=== PATIENT | female | born 1985 | race Caucasian/White ===

== ENCOUNTER → 2019-07-19 | Outpatient (CLI) | payer MEDICAID ==
[~2019-07-19] MED LIST: ACHD5005 PO; ASPI1POW PO; BIRTHCONTROL; CLIN300C3 PO; CPR500T PO; CYCL10TA9 PO; DCS100C PO; HYDR-2858 PO; HYDR-3454 PO; IBP600T1 PO; NAPR-243 PO; NITR-65 PO; ONDA8TAB13 PO; OXYC-12 PO; PHEN200T27 PO; PRD20T PO; PREN1TAB39 PO; TRAM50TA2 PO
== END ==
LOC: LAB 08:20
PROVIDERS: ATTEND Family Medicine
DX: O99.810 Abnormal glucose complicating pregnancy (principal)
CPT/HCPCS: 36415; 82951; 82952; 82962

== ENCOUNTER 2019-08-31 17:19 | Outpatient (CLI) | payer MEDICAID ==
[~2019-08-31] VITALS: Ht 162.5 cm; Wt 72.9 kg
--- NOTE | 2019-08-31 17:25 | NUR ---
KAIT NULL presented to unit via ambulatory from ED/home, with c/o vaginal spotting. KAIT NULL weighed, gowned, voided, and to bed. EFHM and TOCO applied, VS taken. KAIT NULL oriented to bed controls, call light, TV, heat, and A/C controls.
[2019-08-31 17:35] VITALS: BP 114/72
[2019-08-31 17:40] VITALS: BP 114/72
--- NOTE | 2019-08-31 18:25 | NUR ---
Dr Ludwig called by this RN with pt report. Pt of Dr Cook in [place], pt lives here in [place] however. Pt is , states she had a 13wk loss with her last . EDC 11/05, making her 30.1 wks. Pt CO light pink spotting when she wiped. No bleeding noted by this RN. Pt states she is feeling movement, poor water intake, no intercourse recently, no UC- TOCO shows slight uterine irritability, FHT reactive, pt denies complications, VSS. Urine dip results read to Dr Ludwig. Dr Ludwig states pt may DC to home, needs to hydrate well and try to follow up her OB tomorrow if possible.
--- NOTE | 2019-09-01 10:55 | Physician Query-Final Dx ---
Clinic Account Progress/Dx Physician Query: Please give diagnosis Please include # weeks gestation Date of Service August 31, 2019 at 17:19 HAJA BECERRA September 01, 2019 10:55
== END 2019-08-31 18:55 | disposition home or self-care (01) ==
LOC: WSo 17:19 → LDRP 17:19 → WSo 18:55
PROVIDERS: ATTEND Family Medicine
DX: O26.853 Spotting complicating pregnancy, third trimester (principal); Z3A.30 30 weeks gestation of pregnancy
CPT/HCPCS: 99213

== ENCOUNTER 2019-10-13 09:32 | Outpatient (CLI) | payer MEDICAID ==
[~2019-10-13] VITALS: Ht 162.6 cm; Wt 161.9 kg
--- NOTE | 2019-10-13 09:40 | NUR ---
KAIT NULL presented to unit via ambulation from ED, accompanied by self, with c/o BACK/PELVIC PAIN. KAIT NULL weighed, gowned, voided, and to bed. EFHM and TOCO applied, VS taken. KAIT NULL oriented to bed controls, call light, TV, heat, and A/C controls.
--- NOTE | 2019-10-13 09:45 | NUR ---
Pt reports c/o's contractions and pelvic pressure since Friday. pain relieved with Tylenol, pain becoming worse prior to arrival. care received from dr.Jennifer Carranza in [place]. pt lives in [place] with family. states [facility] is closer . denies vaginal bleeding or leaking fluid. +FM. last intercourse with was last week. denies urinary sx's. reports no current hx.
[2019-10-13 09:50] VITALS: BP 125/73
[2019-10-13 09:59] VITALS: BP 125/73
[2019-10-13 10:03] LABS: BILIRUBIN,URINE NEGATIVE (NEGATIVE); CLARITY,URINE CLEAR; COLOR,URINE YELLOW; GLUCOSE, URINE (UA) NEGATIVE (NEGATIVE); KETONES,URINE NEGATIVE (NEGATIVE); LEUKOCYTE ESTERASE ,URINE 2+ (NEGATIVE); NITRITE,URINE NEGATIVE (NEGATIVE); PROTEIN,URINE NEGATIVE (NEGATIVE)
--- NOTE | 2019-10-13 10:05 | NUR ---
SVE 1cm, thick, posterior, high.
[2019-10-13 10:12] LABS: BACTERIA,URINE TRACE /HPF; TRICHOMONAS,URINE FEW /HPF
--- NOTE | 2019-10-13 10:33 | NUR ---
was notified of pt's admitting c/o's, SVE, UA and monitor tracing. Flagyl 2gm po now. monitor x1 hour, if no cervical change- may dismiss to home, follow up with PCP as scheduled.
[2019-10-13] MEDS ORDERED: metroNIDAZOLE 500 MG (FLAGYL) TAB ONE (10:42)
[2019-10-13] MEDS ORDERED: metroNIDAZOLE 500 MG (FLAGYL) TAB PO ONE (10:45)
--- NOTE | 2019-10-13 11:35 | NUR ---
dismissal instructions given, verbalizes understanding. reviewed sx's to RTC. information given r/t trichomonas, treatment, and instructing s/o and partners to seek treatment. pt tearful, crying.
--- NOTE | 2019-10-13 11:40 | NUR ---
SVE no change from admission SVE. instructed pt to follow up with PCP as scheduled or prn if sx's worsen.
--- NOTE | 2019-10-13 11:45 | NUR ---
pt ambulated to private vehicle with no sx's of distress noted.
--- NOTE | 2019-10-14 08:29 | Physician Query-Final Dx ---
HAJA BECERRA 10/14/19 0828: Clinic Account Progress/Dx Physician Query: Please give diagnosis Please include # weeks gestation Date of Service Oct 13, 2019 at 09:32 LESLY TURNER MD 10/14/19 1613: Clinic Account Progress/Dx DIAGNOSIS: Diagnosis 35 weeks with false labor HAJA BECERRA Oct 14, 2019 08:28 LESLY TURNER MD Oct 14, 2019 16:13
== END 2019-10-13 11:45 | disposition home or self-care (01) ==
LOC: WSo 09:32 → LDRP 09:37 → WSo 11:45
PROVIDERS: ATTEND Obstetrics & Gynecology
DX: O47.03 False labor before 37 completed weeks of gestation, third trimester (principal); Z3A.35 35 weeks gestation of pregnancy
CPT/HCPCS: 81000; 87088; 99213

== ENCOUNTER 2020-01-31 18:50 | Emergency (ER) | payer MEDICAID ==
[~2020-01-31] VITALS: Ht 162.5 cm; Wt 64.0 kg
--- NOTE | 2020-01-31 19:36 | ED Abdominal Pain ---
General Chief Complaint: Female Reproductive Stated Complaint: CRAMPING/LARGE CLOT PASSED/UNK IF Source of Information: Patient (LUISANA LOVING STUDENT) History of Present Illness Date Seen by Provider: Jan 31, 2020 Time Seen by Provider: 07:20 Initial Comments Geovanna Payan is an otherwise healthy A1 34 yo F who presents with complaint of clot passage with menses. She states she is 3 months after an uncomplicated vaginal delivery and had her first Depo-Provera shot last month. She states she has been sexually active with her and is not . She reports 1 week of menstrual bleeding of her typical volume with lower abdominal cramping throughout the day today. She took 1000mg Tylenol at 5 pm for this. Pain was 3/10 but currently absent. The patient states she passed a large clot the size of her palm 2.5 hours ago. The patient reports daytime fatigue as well. She denies fever, chills, SOB, chest pain, cough, lightheadedness. (LUISANA LOVING) Allergies and Home Medications Allergies Coded Allergies: No Known Drug Allergies (Unverified , 07/08/10) Home Medications No Active Prescriptions or Reported Meds Patient Home Medication List Home Medication List Reviewed: Yes (MARYLOU CAMPOS MD) Review of Systems Review of Systems Constitutional: No chills, No fever; other (daytime fatigue) Respiratory: Denies Cough, Denies Shortness of Air Gastrointestinal: Denies Abdomen Distended; Abdominal Pain; Denies Nausea, Denies Vomiting Genitourinary: Other (menstrual bleeding with passage of large clot) Musculoskeletal: No back pain (LUISANA LOVING) Past Whxiqak-Xmlalx-Fnkqih Hx Patient Social History 2nd Hand Smoke Exposure: No Recent Foreign Travel: No Contact w/Someone Who Travel: No (LUISANA LOVING) Immunizations Up To Date Date of Influenza Vaccine: Jan 13, 2012 (LUISANA LOVING) Past Medical History Reproductive Disorders: No (LUISANA LOVING) Physical Exam Vital Signs Vital Signs - First Documented 01/31/20 01/31/20 19:11 20:59 Temp 36.3 Pulse 102 Resp 16 B/P (MAP) 136/77 (96) Pulse Ox 100 O2 Delivery Room Air (MARYLOU CAMPOS MD) Vital Signs Capillary Refill : (LUISANA LOVING STUDENT) Height/Weight/BMI Height: 5'4.00" Weight: 139lbs. oz. 63.475676qn; 61.23 BMI Method: General Appearance: WD/WN, no apparent distress HEENT: PERRL/EOMI, normal ENT inspection Neck: non-tender, full range of motion Respiratory: chest non-tender, lungs clear, normal breath sounds, no respiratory distress, no accessory muscle use Cardiovascular: regular rate, rhythm, no edema, no gallop, no JVD, no murmur Gastrointestinal: normal bowel sounds, soft, no organomegaly; No distended, No guarding; tenderness (minimal epigastric tenderness, no suprapubic tenderness or other abdominal tenderness) Extremities: no pedal edema, no calf tenderness Neurologic/Psychiatric: alert, normal mood/affect, oriented x 3 Skin: normal color, warm/dry (LUISANA LOVING [employer] STUDENT) Progress/Results/Core Measures Results/Orders Lab Results Laboratory Tests Test 01/31/20 19:29 Range/Units White Blood Count 8.2 4.3-11.0 10^3/uL Red Blood Count 4.48 3.80-5.11 10^6/uL Hemoglobin 12.3 11.5-16.0 g/dL Hematocrit 38 35-52 % Mean Corpuscular Volume 85 80-99 fL Mean Corpuscular Hemoglobin 28 25-34 pg Mean Corpuscular Hemoglobin Concent 32 32-36 g/dL Red Cell Distribution Width 14.4 10.0-14.5 % Platelet Count 308 130-400 10^3/uL Mean Platelet Volume 8.7 L 9.0-12.2 fL Immature Granulocyte % (Auto) 0 % Neutrophils (%) (Auto) 65 42-75 % Lymphocytes (%) (Auto) 24 12-44 % Monocytes (%) (Auto) 10 0-12 % Eosinophils (%) (Auto) 1 0-10 % Basophils (%) (Auto) 1 0-10 % Neutrophils # (Auto) 5.3 1.8-7.8 10^3/uL Lymphocytes # (Auto) 2.0 1.0-4.0 10^3/uL Monocytes # (Auto) 0.8 0.0-1.0 10^3/uL Eosinophils # (Auto) 0.1 0.0-0.3 10^3/uL Basophils # (Auto) 0.1 0.0-0.1 10^3/uL Immature Granulocyte # (Auto) 0.0 0.0-0.1 10^3/uL Prothrombin Time 12.9 12.2-14.7 SEC INR Comment 0.9 0.8-1.4 Activated Partial Thromboplast Time 26 24-35 SEC Serum Test, Qualitative NEGATIVE NEGATIVE (MARYLOU CAMPOS MD) My Orders Orders - MARYLOU CAMPOS MD Cbc With Automated Diff (01/31/20 18:54) Hcg,Qualitative Serum (01/31/20 18:54) (MARYLOU CAMPOS MD) Vital Signs/I&O 01/31/20 01/31/20 19:11 20:59 Temp 36.3 36.3 Pulse 102 98 Resp 16 16 B/P (MAP) 136/77 (96) 132/75 (96) Pulse Ox 100 O2 Delivery Room Air Room Air (MARYLOU CAMPOS MD) Progress Progress Note : Time: 19:38 Progress Note Geovanna is a A1 34 yo F who is 3 months with her healthy 3 month old in the room presenting with concerns about a large clot she passed with her menses today. The patient had her first Depo-provera shot last month. Vital signs appear stable but her borderline tachycardia and fatigue are suspicious for anemia. This is more likely to be a heavy menstrual cycle rather than retained products of . Will evaluate CBC, serum , coagulation functionality. With benign abdomen on exam, lack of fever or systemic symptoms, and current absence of pain this is unlikely to be an acute abdominal process. (LUISANA LOVING MED STUDENT) Departure Impression Primary Impression: Menorrhagia Qualified Codes: N92.0 - Excessive and frequent menstruation with regular cycle Additional Impression: Pelvic cramping Disposition: 01 HOME, SELF-CARE Condition: Improved Departure-Patient Inst. Decision time for Depature: 20:52 (MARYLOU CAMPOS MD) Referrals: [facility] (PCP/Family) Primary Care Physician Patient Instructions: Menstrual Cramps, Heavy Periods (DC) Add. Discharge Instructions: Contact your women's health provider at [facility] tomorrow morning to arrange follow- up and explain your situation. Return to care if you have severe or worsening symptoms such as worsening b leeding, fever, escalating pain, etc. You may take ibuprofen up to 600 mg every 6 hours and/or Tylenol (acetaminophen) up to 1000 mg every 6 hours as needed for cramping. All discharge instructions reviewed with patient and/or family. Voiced understanding. Scripts No Active Prescriptions or Reported Meds I have personally interviewed and examined this patient along with Luisana Loving, 3. I agree with MS3 documentation including history, exam, and assessments except where otherwise noted. This 34-year-old young lady presents to the emergency room with heavy vaginal bleeding today. She has had normal menstrual-like bleeding for the past week who tell today when it became heavy and she passed a very large clot. She had some intense cramping around the time she passed a clot but has otherwise not had any significant pain. She has felt fatigued recently. She denied any vaginal pain or discharge or urinary symptoms. Exam was as follows General: Alert, oriented, no acute distress HEENT: Normocephalic and atraumatic Heart: Regular rate and rhythm without murmur Lungs: Clear to auscultation bilaterally with normal effort Abdomen: Soft, no significant tenderness, nondistended Neuropsych: Alert, oriented, no focal deficits, normal mood and affect. CBC was unremarkable and serum test was negative. It is uncertain why this patient is having breakthrough bleeding resembling a menstrual cycle while on Depo-Provera. She was advised to follow-up with her women's health provider in the morning. She was stable for discharge from the ER. (MARYLOU CAMPOS MD) Copy Copies To 1: ANDREA OZUNA PETER MED STUDENT Jan 31, 2020 19:36 MARYLOU CAMPOS MD Jan 31, 2020 20:53
[2020-01-31 19:38] LABS: BASOPHILS # (AUTO) 0.1 10^3/uL (0.0-0.1); BASOPHILS % (AUTO) 1 % (0-10); EOSINOPHILS # (AUTO) 0.1 10^3/uL (0.0-0.3); EOSINOPHILS % (AUTO) 1 % (0-10); HEMATOCRIT 38 % (35-52); HEMOGLOBIN 12.3 g/dL (11.5-16.0); LYMPHOCYTES % (AUTO) 24 % (12-44); MEAN CORPUSCULAR HEMOGLOBIN 28 pg (25-34); MEAN CORPUSCULAR HGB CONC 32 g/dL (32-36); MEAN CORPUSCULAR VOLUME 85 fL (80-99); MEAN PLATELET VOLUME 8.7 fL (9.0-12.2); MONOCYTES # (AUTO) 0.8 10^3/uL (0.0-1.0); MONOCYTES % (AUTO) 10 % (0-12); NEUTROPHILS # (AUTO) 5.3 10^3/uL (1.8-7.8); NEUTROPHILS % (AUTO) 65 % (42-75); PLATELET COUNT 308 10^3/uL (130-400); WHITE BLOOD COUNT 8.2 10^3/uL (4.3-11.0)
[2020-01-31 20:27] LABS: INR 0.9 (0.8-1.4); PROTHROMBIN TIME PATIENT 12.9 SEC (12.2-14.7)
[2020-01-31 20:59] VITALS: BP 132/75
== END 2020-01-31 20:59 | disposition home or self-care (01) ==
LOC: EDUNIT# 18:50 → ER 18:52
DX: N92.0 Excessive and frequent menstruation with regular cycle (principal); R10.2 Pelvic and perineal pain
CPT/HCPCS: 36415; 84703; 85025; 85610; 85730

== ENCOUNTER 2020-06-16 12:31 | Emergency (ER) | payer MEDICAID ==
[~2020-06-16] VITALS: Ht 162.5 cm; Wt 65.7 kg
[2020-06-16] MEDS ORDERED: DOXY100T2 PO (14:17)
--- NOTE | 2020-06-16 14:18 | ED General ---
General Chief Complaint: General Problems/Pain Stated Complaint: KNOT ON CHIN, R EYE PAIN Nursing Triage Note: PT AMB TO TRIAGE WITH COMPLAINT OF KNOT UNDER CHIN AND PAIN BEHIND RIGHT EYE. STATES SHE NOTICED KNOT ON CHIN LAST NIGHT AND SHE WOKE UP IN THE MIDDLE OF THE NIGHT WITH THE PAIN BEHIND HER EYE. STATES TOOK TYLENOL THIS MORNING AND PAIN BEHIND EYE IMPROVED. Nursing Sepsis Screen: No Definite Risk Source of Information: Patient Exam Limitations: No Limitations History of Present Illness Date Seen by Provider: Jun 16, 2020 Time Seen by Provider: 14:14 Initial Comments To ER with reports of a knot beneath her chin for about 2 to 3 days. She did have some pain behind the left eye that felt better when she closed the eye. That was upon awakening this morning. She took some Tylenol and the pain is now gone. No redness of the eye no vision changes no history of this. But not beneath the chin persists. Timing/Duration: 1-2 Days Severity: Moderate Associated Systoms: Denies Symptoms Allergies and Home Medications Allergies Coded Allergies: No Known Drug Allergies (Unverified , 07/08/10) Home Medications No Active Prescriptions or Reported Meds Patient Home Medication List Home Medication List Reviewed: Yes Review of Systems Review of Systems Constitutional: see HPI; No chills, No fever EENTM: see HPI Respiratory: no symptoms reported Cardiovascular: no symptoms reported Genitourinary: no symptoms reported Musculoskeletal: no symptoms reported Skin: see HPI Psychiatric/Neurological: No Symptoms Reported Hematologic/Lymphatic: No Symptoms Reported Past Aqavsdg-Lvrufs-Yjapdb Hx Patient Social History Alcohol Use: Denies Use Smoking Status: Never a Smoker 2nd Hand Smoke Exposure: No Recent Infectious Disease Expo: No Recent Hopitalizations: Yes Immunizations Up To Date Date of Influenza Vaccine: Jan 13, 2012 Past Medical History Surgeries: Yes (CLEFT PALATE REPAIR, TUBES IN EARS, FOOT SX, D&C) Gallbladder Respiratory: No Cardiac: No Neurological: No Reproductive Disorders: No Genitourinary: No Gastrointestinal: No Musculoskeletal: Yes (WAS TESTED FOR LUPUS-NEGATIVE, GETTING FURTHER TESTS) Endocrine: No Psychosocial: No Integumentary: No Blood Disorders: No Physical Exam Vital Signs Vital Signs - First Documented 06/16/20 12:44 Temp 36.8 Pulse 97 Resp 20 B/P (MAP) 113/78 (90) Pulse Ox 98 O2 Delivery Room Air Capillary Refill : Less Than 3 Seconds Height, Weight, BMI Height: 5'4.00" Weight: 139lbs. oz. 63.993970oe; 24.00 BMI Method: General Appearance: No Apparent Distress, WD/WN Eyes: Bilateral Eye Normal Inspection, Bilateral Eye PERRL, Bilateral Eye EOMI HEENT: PERRL/EOMI, TMs Normal, Pharynx Normal, Other (She has a few superficial sores on the anterior chin. She states "I am a pecan picker". No cellulitis around these. She has a palpable less than or equal to 1 cm submental lymph node likely reactive to the skin sores.) Neck: Full Range of Motion; No Lymphadenopathy (L), No Lymphadenopathy (R); Other Respiratory: No Accessory Muscle Use, No Respiratory Distress Cardiovascular: Regular Rate, Rhythm, No Murmur Gastrointestinal: Non Tender, Soft Extremity: Normal Capillary Refill Neurologic/Psychiatric: Alert, Oriented x3 Skin: Normal Color, Warm/Dry Comments No other cervical lymphadenopathy Progress/Results/Core Measures Suspected Sepsis Recent Fever Within 48 Hours: No Infection Criteria Present: None New/Unexplained Altered Menta: No Sepsis Screen: No Definite Risk SIRS Temperature: Pulse: 97 Respiratory Rate: 20 Blood Pressure 113 /78 Mean: 90 Results/Orders Vital Signs/I&O 06/16/20 12:44 Temp 36.8 Pulse 97 Resp 20 B/P (MAP) 113/78 (90) Pulse Ox 98 O2 Delivery Room Air Capillary Refill : Less Than 3 Seconds Blood Pressure Mean: 90 Departure Impression Primary Impression: Enlarged submental lymph node Disposition: 01 HOME, SELF-CARE Condition: Stable Departure-Patient Inst. Decision time for Depature: 14:17 Referrals: [facility] [place] (PCP/Family) Primary Care Physician Patient Instructions: Lymphadenitis Add. Discharge Instructions: 1. Tylenol and ibuprofen for pain control. Take the antibiotics as directed. You should notice improvement within about 48 hours. Follow-up with your doctor next week. All discharge instructions reviewed with patient and/or family. Voiced understanding. Scripts Doxycycline Hyclate (Doxycycline Hyclate) 100 Mg Tablet 100 MG PO BID, #14 TAB 0 Refills Prov: LUISANA RICE APRN 06/16/20 LUISANA RICE APRN Jun 16, 2020 14:17
[2020-06-16 14:29] VITALS: BP 113/78
== END 2020-06-16 14:29 | disposition home or self-care (01) ==
LOC: EDUNIT# 12:31 → ER 12:33
DX: R59.9 Enlarged lymph nodes, unspecified (principal)
CPT/HCPCS: 99284

== ENCOUNTER 2021-01-08 17:23 | Emergency (ER) | payer MEDICAID ==
[~2021-01-08] VITALS: Ht 162 cm; Wt 65.9 kg
[~2021-01-08 17:23] MED LIST changes: +DOXY100T2 PO
[2021-01-08 17:28] VITALS: BP 122/80
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
--- NOTE | 2021-01-08 18:43 | Diagnostic Imaging Report ---
INDICATION: Right arm injury, pain COMPARISON: None FINDINGS: Two views of the right humerus demonstrate no fracture or dislocation. Articular surfaces are normal. IMPRESSION: Negative right humerus Dictated by: Dictated on workstation # [id number]
== END 2021-01-08 19:07 | disposition home or self-care (01) ==
LOC: EDUNIT# 17:23 → ER 17:25
DX: S40.021A Contusion of right upper arm, initial encounter (principal); V89.2XXA Person injured in unspecified motor-vehicle accident, traffic, initial encounter
CPT/HCPCS: 73060; 99281

== ENCOUNTER 2021-04-19 17:07 | Emergency (ER) | payer MEDICAID ==
[~2021-04-19] VITALS: Ht 162 cm; Wt 68.0 kg
[2021-04-19 17:20] VITALS: BP 110/76
--- NOTE | 2021-04-19 17:26 | ED Cough/URI ---
General Chief Complaint: Cough/Cold/Flu Symptoms Stated Complaint: FEVER/COUGH/BODYACHES/HEADACHE Nursing Triage Note: ARRIVED VIA AMB TO ROOM 06 WITH COMPLAINTS OF HEADACHE, FEVER, COUGH, BODY ACHES STARTING THIS AM. Source: patient (TASNEEM WHATLEY) History of Present Illness Date Seen by Provider: Apr 19, 2021 Time Seen by Provider: 17:24 Initial Comments Patient is a 35-year-old female who presents ED with flulike symptoms that started this morning. She states she woke up with body aches and fatigue and weakness. She reports generalized headache with mild cough and chest tightness with the cough. Denies of any wheezing, vomiting, diarrhea, change in urination, neck pain. She took Tylenol around 4:00. Afebrile here. Had a negative in-home test of Covid. Exposure to Covid and concern and requesting swab at this time. No known medical problems. Denies taking medication daily besides control. She denies of any chest pain or abdominal pain, back pain. Patient also reports left ear pain with drainage over the past few days. (TASNEEM WHATLEY) Allergies and Home Medications Allergies Coded Allergies: No Known Drug Allergies (Unverified , 07/08/10) Patient Home Medication List Home Medication List Reviewed: Yes (TASNEEM WHATLEY) Amoxicillin (Amoxicillin) 875 Mg Tablet, 875 MG PO BID Prescribed by: TALHA MARKHAM on 04/19/21 1813 Discontinued Medications Doxycycline Hyclate (Doxycycline Hyclate) 100 Mg Tablet, 100 MG PO BID Discontinued Reason: No Longer Taking Prescribed by: LUISANA RICE on 06/16/20 1417 Last Action: Discontinued Review of Systems Review of Systems Constitutional: chills; No diaphoresis; malaise, weakness EENTM: No ear pain, No blurred vision, No eye pain, No nose congestion, No throat pain, No throat swelling Respiratory: cough; No hemoptysis, No orthopnea, No short of breath Cardiovascular: No chest pain Gastrointestinal: No abdominal pain, No diarrhea, No nausea, No vomiting Genitourinary: No decreased output, No dysuria, No frequency Musculoskeletal: No back pain, No joint pain Skin: No change in color, No change in hair/nails (TASNEEM WHATLEY) All Other Systems Reviewed Negative Unless Noted: Yes (TASNEEM WHATLEY) Past Sczuiyw-Pjvrki-Zatfru Hx Past Medical History Surgeries: Yes (CLEFT PALATE REPAIR, TUBES IN EARS, FOOT SX, D&C) Gallbladder Respiratory: No Cardiac: No Neurological: No Last Menstrual Period: Apr 19, 2021 Reproductive Disorders: No Genitourinary: No Gastrointestinal: No Musculoskeletal: Yes (WAS TESTED FOR LUPUS-NEGATIVE, GETTING FURTHER TESTS) Endocrine: No Psychosocial: No Integumentary: No Blood Disorders: No (TASNEEM WHATLEY) Physical Exam Vital Signs - First Documented 04/19/21 17:20 Temp 36.6 Pulse 111 Resp 16 B/P (MAP) 110/76 (87) Pulse Ox 97 O2 Delivery Room Air (MARYLOU CAMPOS MD) Capillary Refill : Less Than 3 Seconds (TASNEEM WHATLEY) Height: 5'4.00" Weight: 139lbs. oz. 63.430578xw; 25.00 BMI Method: General Appearance: WD/WN, no apparent distress Eyes: Bilateral Eye Normal Inspection, Bilateral Eye PERRL, Bilateral Eye EOMI HEENT: PERRL/EOMI, normal ENT inspection, TMs normal, pharynx normal Neck: non-tender, full range of motion, supple, normal inspection Respiratory: chest non-tender, lungs clear, normal breath sounds, no respiratory distress, no accessory muscle use Cardiovascular: no edema, no gallop, no JVD, tachycardia Gastrointestinal: normal bowel sounds, non tender, soft, no organomegaly Extremities: normal range of motion, non-tender, no pedal edema Skin: normal color, warm/dry (TASNEEM WHATLEY) Progress/Results/Core Measures Suspected Sepsis SIRS Temperature: Pulse: 111 Respiratory Rate: 16 Blood Pressure 110 /76 Mean: 87 (TASNEEM WHATLEY) Results/Orders Lab Results Laboratory Tests Test 04/19/21 17:35 Range/Units Influenza Type A Antigen NEGATIVE NEGATIVE Influenza Type B Antigen NEGATIVE NEGATIVE SARS-CoV-2 RNA (RT-PCR) Positive H Negative (MARYLOU CAMPOS MD) Vital Signs/I&O 04/19/21 17:20 Temp 36.6 Pulse 111 Resp 16 B/P (MAP) 110/76 (87) Pulse Ox 97 O2 Delivery Room Air (MARYLOU CAMPOS MD) Vital Signs/I&O Capillary Refill : Less Than 3 Seconds (TASNEEM WHATLEY) Blood Pressure Mean: 87 Departure Communication (PCP) Patient left TM with exudate, swelling and erythema. Concerning for otitis media. Will discharge amoxicillin. Symptoms started this morning with flulike symptoms. Positive for Covid. She took Tylenol right before arrival. She was slightly tachycardic. She does not appear toxic. Lung sounds clear bilateral. No abdominal tenderness. Recommend quarantine at home for the next 10 to 14 days. Conservative treatment with Tylenol, ibuprofen. Recommend drinking plenty of fluids and staying hydrated. If any worsening symptoms return back to ED for further evaluation. Patient agrees with plan of action. Patient is otherwise healthy. (TASNEEM WHATLEY) Impression Primary Impression: COVID-19 Additional Impression: Otitis media Disposition: HOME, SELF-CARE Condition: Stable Departure-Patient Inst. Decision time for Depature: 18:10 (TASNEEM WHATLEY) Referrals: [facility] [place] Primary Care Physician Patient Instructions: COVID-19 ED Scripts Amoxicillin (Amoxicillin) 875 Mg Tablet 875 MG PO BID for 10 Days, #20 TAB Prov: TASNEEM WHATLEY 04/19/21 Work/School Note: Family Work Note, Work Release Form Date Seen in the Emergency Department: Apr 19, 2021 Return to Work: Apr 30, 2021 ATTENDING PHYSICIAN NOTE: I was physically present as attending physician in the emergency department during the care of this patient, but I was not directly involved in the decision making or delivery of care for this patient. (MARYLOU CAMPOS MD) TASNEEM WHATLEY Apr 19, 2021 17:26 MARYLOU CAMPOS MD Apr 19, 2021 20:03
[2021-04-19] MEDS ORDERED: AMOX875T2 PO (18:13)
== END 2021-04-19 18:20 | disposition home or self-care (01) ==
LOC: EDUNIT# 17:07 → ER 17:10
DX: U07.1 COVID-19 (principal); H66.92 Otitis media, unspecified, left ear
CPT/HCPCS: 87636; 87804; 99283